=== PATIENT | female | born 1935 | race Caucasian/White ===

== ENCOUNTER 2016-07-25 12:38 | Emergency (ER) | payer MEDICARE, OTHER ==
[2015-09-10 10:50] VITALS: BMI 22.4
[~2016-07-25 12:38] MED LIST: CARAFATE1 G PO; COLACE100 MG PO; ELIQUIS2.5 MG PO; FOLIC ACID1 MG PO; METHOTREXATE2.5 MG PO; OXYCODONE HCL5 MG PO; PREDNISONE2.5 MG PO; SYNTHROID88 MCG PO; VOLTAREN75 MG PO; ZESTORETIC 10/11 TAB PO; ZOFRAN4 MG PO
== END 2016-07-25 15:01 | disposition home or self-care (01) ==
LOC: D.ER 12:38
DX: S50.312A Abrasion of left elbow, initial encounter (principal); S50.311A Abrasion of right elbow, initial encounter; W18.30XA Fall on same level, unspecified, initial encounter; S00.81XA Abrasion of other part of head, initial encounter; I10 Essential (primary) hypertension

== ENCOUNTER 2019-04-16 15:08 | Inpatient (IN) | payer MEDICARE, OTHER ==
[~2019-04-16] VITALS: Ht 162.6 cm; Wt 51.3 kg
--- NOTE | 2019-04-16 15:30 | NUR ---
URINE COLLECTED AND SENT TO LAB
[2019-04-16 15:56] LABS: BASOPHILS 0.2 % (0-2); EOSINOPHILS 1.5 % (0-7); HEMATOCRIT 34.1 % (36.0-48.0); HEMOGLOBIN 11.3 g/dL (12-16); IMMATURE GRANULOCYTES 0.2 % (0-5); LYMPHOCYTES 29.7 % (15-50); MCH 30.9 pg (26.0-34.0); MCHC 33.1 g/dL (31.0-37.0); MCV 93.2 fL (80.0-100.0); MEAN PLATELET VOLUME 10.7 fL (7.4-10.4); MONOCYTES 16.6 % (2-11); NEUTROPHILS 51.8 % (40-80); PLATELET COUNT 378 10x3/uL (130-400); RBC 3.66 10x6/uL (4.00-5.40); RDW 14.4 % (11.5-14.5); WBC 9.3 10x3/uL (4.8-10.8)
[2019-04-16 16:03] LABS: BILIRUBIN NEGATIVE (NEGATIVE); GLUCOSE NEGATIVE (NEGATIVE); KETONE NEGATIVE (NEGATIVE); NITRITE NEGATIVE (NEGATIVE); SPECIFIC GRAVITY 1.015 (1.005-1.020); UROBILINOGEN NORMAL (NORMAL)
[2019-04-16 16:05] LABS: WHITE CELLS - URINE 0-5 /hpf (NEGATIVE)
[2019-04-16 16:07] LABS: RED CELLS - URINE OCC /hpf (0-5)
[2019-04-16 16:08] LABS: BACTERIA MODERATE /hpf (NEGATIVE)
[2019-04-16 16:11] LABS: CALC OSMOLALITY 294 mosm/kg (275-300); CALCIUM 9.5 mg/dL (8.5-10.1); CARBON DIOXIDE 20.1 mmol/L (21.0-32.0); CHLORIDE - SERUM 103 mmol/L (98-107); CREATININE - SERUM 1.6 mg/dL (0.6-1.3); GLUCOSE 112 mg/dL (74-106); POTASSIUM - SERUM 4.7 mmol/L (3.5-5.1); SODIUM 135 mmol/L (136-145); UREA NITROGEN 81 mg/dL (7-18); eGFR NON AFRICAN AMERICAN 33 mL/min (90-120)
[2019-04-16 16:20] LABS: ALBUMIN 3.2 g/dL (3.4-5.0); ALKALINE PHOSPHATASE 63 U/L (30-120); ALT (SGPT) 22 U/L (10-68); AMYLASE - SERUM 55 U/L (25-115); BILIRUBIN - TOTAL 0.41 mg/dL (0.2-1.3); LIPASE 96 U/L (73-393); PROTEIN - SERUM 7.6 g/dL (6.4-8.2)
[2019-04-16 16:25] LABS: TROPONIN-I < 0.017 ng/mL (0.000-0.060)
--- NOTE | 2019-04-16 19:40 | NUR ---
[facility] PT AAO X 3, RESP EVEN AND UNLABORED. NO DISTRESS NOTED. NO C/O PAIN OR DISCOMFORT NOTED AT THIS TIME. PT MOVED TO BED WITHOUT DIFFICULTY, 20 G TO RIGHT FOREARM, NO REDNES OR SWELLING NOTED TO SITE, NS AT 100CC/HR INFUSING VIA IV PUMP. NO NAUSEA/VOMITING NOTED AT THIS TIME.
[2019-04-16 20:00] VITALS: BP 126/47
[2019-04-16 22:17] VITALS: BMI 19.4
[2019-04-17] VITALS: BP 102/45
[2019-04-17 04:00] VITALS: BP 110/45
[2019-04-17 07:07] LABS: BASOPHILS 0.4 % (0-2); EOSINOPHILS 2.4 % (0-7); HEMATOCRIT 28.3 % (36.0-48.0); LYMPHOCYTES 33.9 % (15-50); MCH 29.6 pg (26.0-34.0); MCHC 31.4 g/dL (31.0-37.0); MEAN PLATELET VOLUME 11.2 fL (7.4-10.4); MONOCYTES 17.2 % (2-11); NEUTROPHILS 46.1 % (40-80); RBC 3.01 10x6/uL (4.00-5.40); RDW 14.5 % (11.5-14.5)
[2019-04-17 07:10] LABS: HEMOGLOBIN 8.9 g/dL (12-16); PLATELET COUNT 287 10x3/uL (130-400); WBC 5.5 10x3/uL (4.8-10.8)
[2019-04-17 07:41] LABS: ALBUMIN 2.4 g/dL (3.4-5.0); ANION GAP 14.6 mmol/L (8-16); BILIRUBIN - TOTAL 0.38 mg/dL (0.2-1.3); CALCIUM 8.1 mg/dL (8.5-10.1); CARBON DIOXIDE 19.2 mmol/L (21.0-32.0); CREATININE - SERUM 1.2 mg/dL (0.6-1.3)
[2019-04-17 07:43] LABS: POTASSIUM - SERUM 3.8 mmol/L (3.5-5.1)
[2019-04-17 08:04] VITALS: BP 112/56
--- NOTE | 2019-04-17 09:29 | NUR ---
DENIES ANY PAIN THIS MORNING, STATE "HAVING SOME DIARRHEA".
[2019-04-17 13:01] VITALS: Ht 162.6 cm; Wt 51.3 kg
[2019-04-17 13:16] VITALS: BP 147/61
[2019-04-17 15:59] VITALS: BP 114/61
--- NOTE | 2019-04-17 20:19 | NUR ---
PT. IN BED, AAO X 3, RESP EVEN AND UNLABORED. NO DISTRESS NOTED. NO C/O PAIN OR DISCOMFORT NOTED. IV INFUSING TO RIGHT FOREARM, NO REDNESS OR SWELLING NOTED. NS @ 100 CC/HR. NO CONCERNS OR WANTS NOTED AT THIS TIME.
[2019-04-17 21:15] VITALS: BP 115/64
[2019-04-18 01:44] VITALS: BP 117/67
--- NOTE | 2019-04-18 05:33 | NUR ---
I have reviewed this patient and I concur with the Shift Assessment completed by the Licensed Practical Nurse today this shift.
[2019-04-18 06:48] VITALS: BP 99/46
--- NOTE | 2019-04-18 07:44 | NUR ---
PT LYING IN BED, VOICED NO N/V SINCE 2 DAYS AGO. PT HAS HAD DIARRHEA. NO S/SX OF DISTRESS, BED IN LOWEST POSITION, CL IN REACH CONTINUE WITH PLAN OF CARE
[2019-04-18 09:01] VITALS: BP 117/50
--- NOTE | 2019-04-18 11:47 | NUR ---
I have reviewed this patient and I concur with the Shift Assessment completed by the Licensed Practical Nurse today this shift.
--- NOTE | 2019-04-18 12:24 | NUR ---
PT LYING IN BED, NO NEEDS VOICED, STATED STILL HAVING DIARRHEA BUT DOES NOT NEED ANYTHING, BED IN LOWEST POSITION, CL IN REACH CONTINUE WITH PLAN OF CARE
[2019-04-18 13:12] VITALS: BP 124/55
[2019-04-18 16:44] VITALS: BP 115/54
[2019-04-18 20:00] VITALS: BP 127/60
[2019-04-19] VITALS: BP 125/55
[2019-04-19 06:04] LABS: BASOPHILS 0.3 % (0-2); EOSINOPHILS 3.8 % (0-7); HEMATOCRIT 24.9 % (36.0-48.0); HEMOGLOBIN 8.2 g/dL (12-16); IMMATURE GRANULOCYTES 0.5 % (0-5); LYMPHOCYTES 29.5 % (15-50); MCH 30.4 pg (26.0-34.0); MCHC 32.9 g/dL (31.0-37.0); MCV 92.2 fL (80.0-100.0); MEAN PLATELET VOLUME 10.1 fL (7.4-10.4); MONOCYTES 11.1 % (2-11); NEUTROPHILS 54.8 % (40-80); PLATELET COUNT 236 10x3/uL (130-400); RDW 13.7 % (11.5-14.5); WBC 6.5 10x3/uL (4.8-10.8)
[2019-04-19 08:11] VITALS: BP 120/56
[2019-04-19 08:41] VITALS: BP 119/59
--- NOTE | 2019-04-19 08:58 | NUR ---
SHE STARTING BLOODY DIARRHEA LAST NIGHT. NO NEW ISSUES.
[2019-04-19 09:03] LABS: ANION GAP 13.4 mmol/L (8-16); CALCIUM 7.7 mg/dL (8.5-10.1); CREATININE - SERUM 0.9 mg/dL (0.6-1.3); POTASSIUM - SERUM 3.4 mmol/L (3.5-5.1)
--- NOTE | 2019-04-19 12:58 | NUR ---
TUBING CHANGED ON THE PRIMARY TUBING AND SECONDARY TUBING.
[2019-04-19 13:41] VITALS: BP 149/62
--- NOTE | 2019-04-19 14:28 | MORECARE ---
CASE MANAGEMENT DISCHARGE SUMMARY PATIENT: CABRERA LOVELL UNIT: [id number] ADM DATE: 04/16/19 AGE: 84 : 37 SEX: F ROOM/BED: D.2232 AUTHOR: PALMA,DOC PHYSICIAN: REFERRING PHYSICIAN: BENITO GUARDADO MD DATE OF SERVICE: 04/19/19 Discharge Plan Patient Name: CABRERA LOVELL Facility: [facility]:[place] : 1935 Planned Disposition: Home Anticipated Discharge Date: 04/19/19 Discharge Date: Expected LOS: 3 Initial Reviewer: [email or web address] Initial Review Date: 04/19/2019 Generated: 04/19/19 3:28 pm Comments DCP- Discharge Planning Updated by [email or web address]: Liz Mills on 04/19/19 1:[address] Patient Name: CABRERA LOVELL Admission Status: ER Accout number: [id number] Admission Date: 04-16-2019 : 1935 Admission Diagnosis: Attending: BENITO GUARDADO Current LOS: 3 Anticipated DC Date: 04-19-2019 Planned Disposition: Home Primary Insurance: MEDICARE A & B Discharge Planning Comments: CM met with patient to complete initial dc planning assessment. CM educated patient on the CM role and verbal consent given by patient to complete assessment. Patient lives at home with 48 year old daughter (that she care for) and 91 year old "lady friend". At discharge patient plans to return and feels this is a safe discharge. CM discussed availability of home health, rehab services, and medical equipment. Patient denied known discharge needs at this time. States she will drive herself home on discharge. CM will continue to follow and will assist as needed with dc plans/needs. Therapist Physical: Liz Mills DCPIA - Discharge Planning Initial Assessment Updated by [email or web address]: Liz Mills on 04/19/19 2:22 pm * Is the patient Alert and Oriented? Yes * How many steps to enter\\exit or inside your home? 02/20 * PCP Dr. Guardado * Pharmacy [place] * Preadmission Environment Home with Family * ADLs Independent * Equipment None * List name and contact numbers for known caregivers / representatives who currently or will assist patient after discharge: April [facility] - [phone] * Verbal permission to speak to the caregivers and representatives has been obtained from the patient. Yes * Community resources currently utilized None * Additional services required to return to the preadmission environment? No * Can the patient safely return to the preadmission environment? Yes * Has this patient been hospitalized within the prior 30 days at any hospital? No Coverage Notice Reviewer: [id number] Mekhi Mills Notice Issued Date-Time: 04/19/2019 14:19 Notice Type: IM Discharge Notice Notice Delivered To: Patient Relationship to Patient: Self Gerontology Aide Name: Delivery Method: HAND - Hand Delivered Beverly Days: Prior Verbal Notification: Recipient Understood Notice: Yes Recipient Signature: Yes Med Rec Note Co-signed by Attending: Coverage Notice Comment: IMM explained, signed, given, copy placed in MR Patient Name: CABRERA LOVELL Page [phone] at 1428 All edits/amendments must be made on the electronic document DICTATION DATE: 04/19/191427 LEAD DATA ARCHITECT: LUCÍA 04/19/19 142 RPT#: [id number] DC DATE: STATUS: ADM IN [facility] [address] [place] [address] END OF REPORT
--- NOTE | 2019-04-22 09:37 | MORECARE ---
CASE MANAGEMENT DISCHARGE SUMMARY PATIENT: CABRERA LOVELL UNIT: [id number] ADM DATE: 04/16/19 AGE: 84 : 37 SEX: F ROOM/BED: D.2232 AUTHOR: PALMA,DOC PHYSICIAN: REFERRING PHYSICIAN: BENITO GUARDADO MD DATE OF SERVICE: 04/22/19 Discharge Plan Patient Name: CABRERA LOVELL Facility: [facility]:[place] : 1935 Planned Disposition: Home Anticipated Discharge Date: 04/19/19 Discharge Date: 04/19/2019 Expected LOS: 3 Initial Reviewer: [email or web address] Initial Review Date: 04/19/2019 Generated: 04/22/19 10:36 am Comments DCP- Discharge Planning Updated by [email or web address]: Liz Mills on 04/19/19 1:[address] Patient Name: CABRERA LOVELL Admission Status: ER Accout number: [id number] Admission Date: 04-16-2019 : 1935 Admission Diagnosis: Attending: BENITO GUARDADO Current LOS: 3 Anticipated DC Date: 04-19-2019 Planned Disposition: Home Primary Insurance: MEDICARE A & B Discharge Planning Comments: CM met with patient to complete initial dc planning assessment. CM educated patient on the CM role and verbal consent given by patient to complete assessment. Patient lives at home with 48 year old daughter (that she care for) and 91 year old "lady friend". At discharge patient plans to return and feels this is a safe discharge. CM discussed availability of home health, rehab services, and medical equipment. Patient denied known discharge needs at this time. States she will drive herself home on discharge. CM will continue to follow and will assist as needed with dc plans/needs. Furniture Duster: Liz Mills DCPIA - Discharge Planning Initial Assessment Updated by [id number]: Liz Mills on 04/19/19 2:22 pm * Is the patient Alert and Oriented? Yes * How many steps to enter\\exit or inside your home? 02/20 * PCP Dr. Guardado * Pharmacy [place] * Preadmission Environment Home with Family * ADLs Independent * Equipment None * List name and contact numbers for known caregivers / representatives who currently or will assist patient after discharge: April [facility] - [phone] * Verbal permission to speak to the caregivers and representatives has been obtained from the patient. Yes * Community resources currently utilized None * Additional services required to return to the preadmission environment? No * Can the patient safely return to the preadmission environment? Yes * Has this patient been hospitalized within the prior 30 days at any hospital? No Coverage Notice Reviewer: [email or web address] Mekhi Mills Notice Issued Date-Time: 04/19/2019 14:19 Notice Type: IM Discharge Notice Notice Delivered To: Patient Relationship to Patient: Self Game Technician Name: Delivery Method: HAND - Hand Delivered Beverly Days: Prior Verbal Notification: Recipient Understood Notice: Yes Recipient Signature: Yes Med Rec Note Co-signed by Attending: Coverage Notice Comment: IMM explained, signed, given, copy placed in MR Last DP export: 04/19/19 1:28 p Patient Name: CABRERA LOVELL Page [phone] at 0937 All edits/amendments must be made on the electronic document DICTATION DATE: 04/22/19935 SALES SERVICE COORDINATOR: LUCÍA 04/22/19935 RPT#: [id number] DC DATE:04/19/19 STATUS: DIS IN [facility] [address] [place] [address] END OF REPORT
== END 2019-04-19 20:17 | disposition home or self-care (01) | DRG 683 ==
LOC: D.ER 15:08 → D.MS 17:33
PROVIDERS: Family Medicine; ADMIT Family Medicine; ATTEND Family Medicine
DX: N17.9 Acute kidney failure, unspecified (principal); N39.0 Urinary tract infection, site not specified; K52.9 Noninfective gastroenteritis and colitis, unspecified; E86.9 Volume depletion, unspecified; E86.0 Dehydration; I10 Essential (primary) hypertension; M19.90 Unspecified osteoarthritis, unspecified site; R79.89 Other specified abnormal findings of blood chemistry

== ENCOUNTER 2019-04-20 23:25 | Inpatient (IN) | payer MEDICARE, OTHER ==
[~2019-04-20] VITALS: Ht 162.6 cm; Wt 52.6 kg
[2019-04-20 23:50] LABS: BASOPHILS 0.3 % (0-2); EOSINOPHILS 0.8 % (0-7); IMMATURE GRANULOCYTES 1.1 % (0-5); LYMPHOCYTES 8.8 % (15-50); MCH 29.9 pg (26.0-34.0); MCHC 32.8 g/dL (31.0-37.0); MEAN PLATELET VOLUME 10.7 fL (7.4-10.4); MONOCYTES 6.7 % (2-11); NEUTROPHILS 82.3 % (40-80); RDW 13.6 % (11.5-14.5)
[2019-04-20 23:51] LABS: HEMATOCRIT 33.5 % (36.0-48.0); PLATELET COUNT 384 10x3/uL (130-400); RBC 3.68 10x6/uL (4.00-5.40); WBC 12.9 10x3/uL (4.8-10.8)
[2019-04-20 23:59] LABS: ANION GAP 18.3 mmol/L (8-16); CALCIUM 9.1 mg/dL (8.5-10.1); CARBON DIOXIDE 19.1 mmol/L (21.0-32.0); POTASSIUM - SERUM 3.4 mmol/L (3.5-5.1)
[2019-04-21 00:01] LABS: CREATININE - SERUM 1.2 mg/dL (0.6-1.3)
[2019-04-21 00:05] LABS: ALBUMIN 3.2 g/dL (3.4-5.0); BILIRUBIN - TOTAL 0.35 mg/dL (0.2-1.3); MAGNESIUM - SERUM 1.7 mg/dL (1.8-2.4); PROTEIN - SERUM 7.2 g/dL (6.4-8.2)
[2019-04-21 00:56] LABS: BILIRUBIN NEGATIVE (NEGATIVE); GLUCOSE NEGATIVE (NEGATIVE); KETONE MODERATE mg/dL (NEGATIVE); NITRITE NEGATIVE (NEGATIVE); SPECIFIC GRAVITY 1.015 (1.005-1.020); UROBILINOGEN NORMAL (NORMAL)
[2019-04-21 01:04] LABS: CKMB 4.1 U/L (0.0-3.6); CREATINE KINASE 216 UL (21-215)
[2019-04-21 01:05] LABS: TROPONIN-I < 0.017 ng/mL (0.000-0.060)
--- NOTE | 2019-04-21 02:30 | NUR ---
PATIENT ARRIVED ON FLOOR VIA BED WITH HOSPITAL STAFF AND FRIEND. NO S/S OF ACUTE DISTRESS. NO C/O AT THIS TIME. PATIENT WALKED FROM ER BED TO OUR BED. PATIENT HAS RIGHT AC NORMAL SALINE @ 100 ML/HR. IV IS PATENT WITHOUT REDNESS, SWELLING, OR TENDERNESS. CALL LIGHT IN PLACE. WILL CONTINUE TO MONITOR.
[2019-04-21 02:59] VITALS: BP 147/48; BMI 19.9
[2019-04-21 04:00] VITALS: BP 147/48
[2019-04-21 07:06] LABS: BASOPHILS 0.2 % (0-2); EOSINOPHILS 1.5 % (0-7); IMMATURE GRANULOCYTES 0.9 % (0-5); LYMPHOCYTES 22.7 % (15-50); MCH 29.7 pg (26.0-34.0); MCHC 32.8 g/dL (31.0-37.0); MCV 90.4 fL (80.0-100.0); MEAN PLATELET VOLUME 10.2 fL (7.4-10.4); MONOCYTES 7.4 % (2-11); NEUTROPHILS 67.3 % (40-80); RDW 13.9 % (11.5-14.5)
[2019-04-21 07:16] LABS: HEMATOCRIT 26.5 % (36.0-48.0); HEMOGLOBIN 8.7 g/dL (12-16); PLATELET COUNT 283 10x3/uL (130-400); RBC 2.93 10x6/uL (4.00-5.40); WBC 6.5 10x3/uL (4.8-10.8)
[2019-04-21 07:35] LABS: ALBUMIN 2.5 g/dL (3.4-5.0); BILIRUBIN - TOTAL 0.26 mg/dL (0.2-1.3); CALCIUM 7.7 mg/dL (8.5-10.1); CARBON DIOXIDE 17.9 mmol/L (21.0-32.0); CREATININE - SERUM 0.9 mg/dL (0.6-1.3); PROTEIN - SERUM 5.7 g/dL (6.4-8.2)
[2019-04-21 07:41] LABS: ANION GAP 17.2 mmol/L (8-16); POTASSIUM - SERUM 3.1 mmol/L (3.5-5.1)
--- NOTE | 2019-04-21 07:59 | NUR ---
PT LAYING SUPINE, RR EVEN AND UNLABORED. DENIES NEEDS OR PAIN AT THIS TIME. STOOL SAMPLE COLLECTED AND SENT TO LAB. CALL LIGHT WITHIN REACH. BED IN LOWEST POSITION. CALL LIGHT WITHIN REACH. WILL CONTINUE TO MONITOR.
[2019-04-21 08:45] VITALS: BP 118/46
[2019-04-21 12:29] VITALS: BP 126/53
[2019-04-21 16:30] VITALS: BP 125/51
--- NOTE | 2019-04-21 17:12 | NUR ---
I have reviewed this patient and I concur with the Shift Assessment completed by the Licensed Practical Nurse today this shift.
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
--- NOTE | 2019-04-21 18:35 | NUR ---
IV TO RIGHT AC INFILTRATED. D/C WITH CATHETER TIP INTACT. 22 G RESITED TO LEFT FOREARM INFUSING NS @100
[2019-04-21 20:00] VITALS: BP 147/48
[2019-04-22] VITALS: BP 139/79
[2019-04-22 04:00] VITALS: BP 135/65
[2019-04-22 06:19] LABS: BASOPHILS 0.3 % (0-2); EOSINOPHILS 4.8 % (0-7); HEMATOCRIT 25.9 % (36.0-48.0); HEMOGLOBIN 8.4 g/dL (12-16); IMMATURE GRANULOCYTES 0.9 % (0-5); LYMPHOCYTES 36.8 % (15-50); MCH 29.5 pg (26.0-34.0); MCHC 32.4 g/dL (31.0-37.0); MCV 90.9 fL (80.0-100.0); MEAN PLATELET VOLUME 10.7 fL (7.4-10.4); MONOCYTES 11.7 % (2-11); NEUTROPHILS 45.5 % (40-80); PLATELET COUNT 277 10x3/uL (130-400); RBC 2.85 10x6/uL (4.00-5.40); RDW 14.2 % (11.5-14.5); WBC 7.5 10x3/uL (4.8-10.8)
[2019-04-22 06:46] LABS: ANION GAP 14.7 mmol/L (8-16); CALCIUM 7.7 mg/dL (8.5-10.1); CARBON DIOXIDE 18.5 mmol/L (21.0-32.0); CREATININE - SERUM 0.8 mg/dL (0.6-1.3); MAGNESIUM - SERUM 1.5 mg/dL (1.8-2.4); PHOSPHOROUS 2.1 mg/dL (2.5-4.9); POTASSIUM - SERUM 3.2 mmol/L (3.5-5.1)
[2019-04-22 08:39] VITALS: BP 130/60
[2019-04-22 12:53] VITALS: BP 138/64
[2019-04-22 14:01] VITALS: Ht 162.6 cm; Wt 52.6 kg
[2019-04-22 16:01] VITALS: BP 139/62
--- NOTE | 2019-04-22 16:22 | NUR ---
I have reviewed this patient and I concur with the Shift Assessment completed by the Licensed Practical Nurse today this shift.
[2019-04-22 20:00] VITALS: BP 148/61
[2019-04-23] VITALS: BP 150/64
[2019-04-23 04:00] VITALS: BP 168/82
--- NOTE | 2019-04-23 07:00 | NUR ---
ALERT AND ORIENTED. NO C/O PAIN. NO S/S OF ACUTE DISTRESS NOTED. IV TO LEFT FOREARM, NS INFUSING 125ML/HR. SITE PATENT WITHOUT REDNESS OR SWELLING. ON TELEMETRY 69 SR. DENIES ANY NEEDS AT THIS TIME. CALL LIGHT IN REACH. WILL CONTINUE TO MONITOR.
[2019-04-23 08:41] VITALS: BP 163/71
[2019-04-23 13:03] VITALS: BP 161/77
[2019-04-23 18:02] VITALS: BP 156/66
--- NOTE | 2019-04-23 18:56 | NUR ---
ALERT AND ORIENTED. NO C/O PAIN. NO S/S OF ACUTE DISTRESS NOTED. DENIES ANY NEEDS AT THIS TIME. CALL LIGHT IN REACH. WILL CONTINUE TO MONITOR.
[2019-04-24] VITALS: BP 156/71
--- NOTE | 2019-04-24 07:00 | NUR ---
ALERT AND ORIENTED, RESTING IN BED. NO C/O PAIN. NO S/S OF ACUTE DISTRESS NOTED. IV TO LEFT FOREARM, NS INFUSING @ 125ML/HR. SITE PATENT WITHOUT REDNESS OR SWELLING. ON TELEMETRY SR 82. DENIES ANY NEEDS AT THIS TIME. CALL LIGHT IN REACH. WILL CONTINUE TO MONITOR.
[2019-04-24 07:50] LABS: BASOPHILS 0.3 % (0-2); EOSINOPHILS 0.2 % (0-7); HEMATOCRIT 27.7 % (36.0-48.0); IMMATURE GRANULOCYTES 1.6 % (0-5); LYMPHOCYTES 15.9 % (15-50); MCH 29.4 pg (26.0-34.0); MCHC 32.5 g/dL (31.0-37.0); MCV 90.5 fL (80.0-100.0); MEAN PLATELET VOLUME 10.5 fL (7.4-10.4); MONOCYTES 5.8 % (2-11); NEUTROPHILS 76.2 % (40-80); PLATELET COUNT 291 10x3/uL (130-400); RBC 3.06 10x6/uL (4.00-5.40); RDW 14.4 % (11.5-14.5)
[2019-04-24 08:06] LABS: WBC 9.9 10x3/uL (4.8-10.8)
[2019-04-24 08:16] LABS: CALC OSMOLALITY 278 mosm/kg (275-300); CALCIUM 7.8 mg/dL (8.5-10.1); CHLORIDE - SERUM 110 mmol/L (98-107); CREATININE - SERUM 0.7 mg/dL (0.6-1.3); GLUCOSE 85 mg/dL (74-106); SODIUM 142 mmol/L (136-145); UREA NITROGEN 5 mg/dL (7-18); eGFR NON AFRICAN AMERICAN 85 mL/min (90-120)
[2019-04-24 09:18] VITALS: BP 160/80
[2019-04-24 13:06] VITALS: BP 163/79
--- NOTE | 2019-04-24 16:25 | NUR ---
I have reviewed this patient and I concur with the Shift Assessment completed by the Licensed Practical Nurse today this shift.
[2019-04-24 16:56] VITALS: BP 153/77
--- NOTE | 2019-04-24 18:24 | NUR ---
ALERT AND ORIENTED. NO C/O PAIN. NO S/S OF ACUTE DISTRESS NOTED. DENIES ANY NEEDS AT THIS TIME. CALL LIGHT IN REACH. WILL CONTINUE TO MONITOR.
[2019-04-24 20:00] VITALS: BP 144/69
--- NOTE | 2019-04-25 01:41 | NUR ---
PT RESTING IN BED. EYES CLOSED. NO SIGNS OF DISTRESS. BREATHING EVEN AND UNLABORED. IV SITE LT FA DRESSING CLEAN DRY AND INTACT. NO SIGNS OF INFECTION OR INFULTRATION. BOWEL SOUNDS ACTIVE. LUNG SOUNDS CLEAR. SKIN CLEAN DRY AND INTACT. NO LOWER LEG SWELLING PRESENT. WILL CONTINUE PLAN OF CARE. CALL LIGHT IN REACH. BED LOWERED AND LOCKED. BED RAILS UP X2.
--- NOTE | 2019-04-25 02:04 | NUR ---
I have reviewed this patient and I concur with the Shift Assessment completed by the Licensed Practical Nurse today this shift.
[2019-04-25 04:00] VITALS: BP 143/78
[2019-04-25 05:19] LABS: BASOPHILS 0.3 % (0-2); EOSINOPHILS 0.4 % (0-7); HEMOGLOBIN 8.6 g/dL (12-16); IMMATURE GRANULOCYTES 1.2 % (0-5); LYMPHOCYTES 16.4 % (15-50); MCH 29.9 pg (26.0-34.0); MCHC 33.1 g/dL (31.0-37.0); MCV 90.3 fL (80.0-100.0); MEAN PLATELET VOLUME 10.4 fL (7.4-10.4); MONOCYTES 6.4 % (2-11); NEUTROPHILS 75.3 % (40-80); PLATELET COUNT 298 10x3/uL (130-400); RBC 2.88 10x6/uL (4.00-5.40); RDW 14.6 % (11.5-14.5); WBC 9.6 10x3/uL (4.8-10.8)
[2019-04-25 05:43] LABS: ANION GAP 14.9 mmol/L (8-16); CALCIUM 7.7 mg/dL (8.5-10.1); CARBON DIOXIDE 20.3 mmol/L (21.0-32.0); CREATININE - SERUM 0.8 mg/dL (0.6-1.3)
[2019-04-25 05:44] LABS: POTASSIUM - SERUM 3.2 mmol/L (3.5-5.1)
[2019-04-25 09:03] VITALS: BP 167/74
[2019-04-25 12:10] VITALS: BP 155/80
--- NOTE | 2019-04-25 13:23 | NUR ---
PT LYING IN BED, NO S/SX OF DISTRESS, PT STATES SHE FEELS A LOT BETTER AND IS READY TO BE DC. NO OTHER NEEDS VOICED, CONTINUE WITH PLAN OF CARE
--- NOTE | 2019-04-25 13:32 | MORECARE ---
CASE MANAGEMENT DISCHARGE SUMMARY PATIENT: CABRERA LOVELL UNIT: [id number] ADM DATE: 04/21/19 AGE: 84 : 37 SEX: F ROOM/BED: D.2234 AUTHOR: JAZ WALDROP PHYSICIAN: REFERRING PHYSICIAN: BENITO GUARDADO MD DATE OF SERVICE: 04/25/19 Discharge Plan Patient Name: CABRERA LOVELL [facility] [facility] 1935 Planned Disposition: Home Anticipated Discharge Date: Discharge Date: Expected LOS: Initial Reviewer: [email or web address] Initial Review Date: 04/25/2019 Generated: 04/25/19 2:32 pm DCPIA - Discharge Planning Initial Assessment Updated by [id number]: Liz Mills on 04/25/19 1:31 pm * Is the patient Alert and Oriented? Yes * How many steps to enter\exit or inside your home? 02/20 * PCP Dr. Guardado * Pharmacy [place] * Preadmission Environment Home with Family * ADLs Independent * Equipment None * List name and contact numbers for known caregivers / representatives who currently or will assist patient after discharge: Kareem [facility] - [email or web address] - [phone] * Verbal permission to speak to the caregivers and representatives has been obtained from the patient. Yes * Community resources currently utilized None * Additional services required to return to the preadmission environment? No * Can the patient safely return to the preadmission environment? Yes * Has this patient been hospitalized within the prior 30 days at any hospital? Yes Patient Name: CABRERA LOVELL Page 12521 at 1332 All edits/amendments must be made on the electronic document DICTATION DATE: 04/25/19 1332 RADIO OPERATOR GROUND: LUCÍA 04/25/19 1332 RPT#: [id number] DC DATE: STATUS: ADM IN [facility] [address] [place] [address] END OF REPORT
--- NOTE | 2019-04-25 13:42 | MORECARE ---
CASE MANAGEMENT DISCHARGE SUMMARY PATIENT: CABRERA LOVELL UNIT: [id number] ADM DATE: 04/21/19 AGE: 84 : 37 SEX: F ROOM/BED: D.2234 AUTHOR: PALMA,DOC PHYSICIAN: REFERRING PHYSICIAN: BENITO GUARDADO MD DATE OF SERVICE: 04/25/19 Discharge Plan Patient Name: CABRERA LOVELL Facility: [facility]:[place] : 1935 Planned Disposition: Home Anticipated Discharge Date: Discharge Date: Expected LOS: Initial Reviewer: [email or web address] Initial Review Date: 04/25/2019 Generated: 04/25/19 2:41 pm Comments DCP- Discharge Planning Updated by [email or web address]: Liz Mills on 04/25/19 12:[address] Patient Name: CABRERA LOVELL Admission Status: ER Accout number: [id number] Admission Date: 04-21-2019 : 1935 Admission Diagnosis: Attending: BENITO GUARDADO Current LOS: 4 Anticipated DC Date: Planned Disposition: Home Primary Insurance: MEDICARE A & B Discharge Planning Comments: CM met with patient to complete initial dc planning assessment. CM educated patient on the CM role and verbal consent given by patient to complete assessment. Patient lives at home with her 48 year old disabled daughter and 91 year old friend. At discharge patient plans to return and feels this is a safe discharge. States she was doing well when she left, but started throwing up after eating her supper that night. I instructed her to make sure she was able to tolerate her diet prior to discharge this time. CM discussed availability of home health, rehab services, and medical equipment. Patient denied known discharge needs at this time. CM will continue to follow and will assist as needed with dc plans/needs. Lithographic Platemaker: Liz Mills DCPIA - Discharge Planning Initial Assessment Updated by [email or web address]: Liz Mills on 04/25/19 1:31 pm * Is the patient Alert and Oriented? Yes * How many steps to enter\exit or inside your home? 02/20 * PCP Dr. Guardado * Pharmacy [place] * Preadmission Environment Home with Family * ADLs Independent * Equipment None * List name and contact numbers for known caregivers / representatives who currently or will assist patient after discharge: Kareem Velazquez - [email or web address] - [phone] * Verbal permission to speak to the caregivers and representatives has been obtained from the patient. Yes * Community resources currently utilized None * Additional services required to return to the preadmission environment? No * Can the patient safely return to the preadmission environment? Yes * Has this patient been hospitalized within the prior 30 days at any hospital? Yes Last DP export: 04/25/19 12:32 pm Patient Name: CABRERA LOVELL Page [phone] at 1342 All edits/amendments must be made on the electronic document DICTATION DATE: 04/25/19 1342 CLEAN ROOM ASSEMBLER: LUCÍA 04/25/19 1342 RPT#: [id number] DC DATE: STATUS: ADM IN [facility] [address] [place] [address] END OF REPORT
[2019-04-25] MEDS ORDERED: LEVOFLOXACIN500 MG PO (13:46)
[2019-04-25] MEDS ORDERED: PREDNISONE5 MG PO (13:46)
[2019-04-25] MEDS ORDERED: FLAGYL500 MG PO (13:47)
--- NOTE | 2019-04-25 14:22 | MORECARE ---
CASE MANAGEMENT DISCHARGE SUMMARY PATIENT: CABRERA LOVELL UNIT: [id number] ADM DATE: 04/21/19 AGE: 84 : 37 SEX: F ROOM/BED: D.2234 AUTHOR: PALMADOC PHYSICIAN: REFERRING PHYSICIAN: BENITO GUARDADO MD DATE OF SERVICE: 04/25/19 Discharge Plan Patient Name: CABRERA LOVELL Facility: [facility]:[place] : 1935 Planned Disposition: Home Anticipated Discharge Date: Discharge Date: Expected LOS: Initial Reviewer: [email or web address] Initial Review Date: 04/25/2019 Generated: 04/25/19 3:21 pm Comments DCP- Discharge Planning Updated by [email or web address]: Liz Mills on 04/25/19 1:[address] Patient Name: CABRERA LOVELL Encounter No: [id number] : 1935 Primary Insurance: MEDICARE A & B Anticipated DC Date: Planned Disposition: Home External Planned Provider: : DCP follow-up note: Patient in agreement with discharge plan. No changes to plan. Case management will follow and assist as needed. Liz Mills DCP- Discharge Planning Updated by [email or web address]: Liz Mills on 04/25/19 12:[address] Patient Name: CABRERA LOVELL Admission Status: ER Accout number: [id number] Admission Date: 04-21-2019 : 1935 Admission Diagnosis: Attending: BENITO GUARDADO Current LOS: 4 Anticipated DC Date: Planned Disposition: Home Primary Insurance: MEDICARE A & B Discharge Planning Comments: CM met with patient to complete initial dc planning assessment. CM educated patient on the CM role and verbal consent given by patient to complete assessment. Patient lives at home with her 48 year old disabled daughter and 91 year old friend. At discharge patient plans to return and feels this is a safe discharge. States she was doing well when she left, but started throwing up after eating her supper that night. I instructed her to make sure she was able to tolerate her diet prior to discharge this time. CM discussed availability of home health, rehab services, and medical equipment. Patient denied known discharge needs at this time. CM will continue to follow and will assist as needed with dc plans/needs. Round Cutter Operator: Liz Mills DCPIA - Discharge Planning Initial Assessment Updated by [email or web address]: Liz Mills on 04/25/19 1:31 pm * Is the patient Alert and Oriented? Yes * How many steps to enter\exit or inside your home? 02/20 * PCP Dr. Guardado * Pharmacy [place] * Preadmission Environment Home with Family * ADLs Independent * Equipment None * List name and contact numbers for known caregivers / representatives who currently or will assist patient after discharge: Kareem [facility] [email or web address] - [phone] * Verbal permission to speak to the caregivers and representatives has been obtained from the patient. Yes * Community resources currently utilized None * Additional services required to return to the preadmission environment? No * Can the patient safely return to the preadmission environment? Yes * Has this patient been hospitalized within the prior 30 days at any hospital? Yes Coverage Notice Reviewer: [email or web address] - Liz Mills Notice Issued Date-Time: 04/25/2019 14:15 Notice Type: IM Discharge Notice Notice Delivered To: Patient Relationship to Patient: Self Security Sales Manager Name: Delivery Method: HAND - Hand Delivered Beverly Days: Prior Verbal Notification: Recipient Understood Notice: Yes Recipient Signature: Yes Med Rec Note Co-signed by Attending: Coverage Notice Comment: IMM explained, signed, given, copy placed in MR Last DP export: 04/25/19 12:42 pm Patient Name: CABRERA LOVELL Page [phone] at 1422 All edits/amendments must be made on the electronic document DICTATION DATE: 04/25/19 142 BEFORE SCHOOL: LUCÍA 04/25/19 142 RPT#: [id number] DC DATE: STATUS: ADM IN [facility] [address] [place] [address] END OF REPORT
--- NOTE | 2019-04-25 16:29 | NUR ---
PT DC HOME. WENT OVER DC PAPERWORK AND FOLLOW UP APPOINTMENTS WITH PT. ALL QUESTIONS ANSWERED. IV REMOVED WITH CATHETER INTACT
--- NOTE | 2019-04-26 06:54 | MORECARE ---
CASE MANAGEMENT DISCHARGE SUMMARY PATIENT: CABRERA LOVELL UNIT: [id number] ADM DATE: 04/21/19 AGE: 84 : 37 SEX: F ROOM/BED: D.2234 AUTHOR: PALMA,DOC PHYSICIAN: REFERRING PHYSICIAN: BENITO GUARDADO MD DATE OF SERVICE: 04/26/19 Discharge Plan Patient Name: CABRERA LOVELL Facility: [facility]:[place] : 1935 Planned Disposition: Home Anticipated Discharge Date: Discharge Date: 04/25/2019 Expected LOS: 0 Initial Reviewer: [email or web address] Initial Review Date: 04/25/2019 Generated: 04/26/19 7:54 am Comments DCP- Discharge Planning Updated by [email or web address]: Lizwinifred Mills on 04/25/19 1:[address] Patient Name: CABRERA LOVELL Encounter No: [id number] : 1935 Primary Insurance: MEDICARE A & B Anticipated DC Date: Planned Disposition: Home External Planned Provider: : DCP follow-up note: Patient in agreement with discharge plan. No changes to plan. Case management will follow and assist as needed. Liz Lina DCP- Discharge Planning Updated by [email or web address]: Liz Lina on 04/25/19 12:[address] Patient Name: CABRERA LOVELL Admission Status: ER Accout number: [id number] Admission Date: 04-21-2019 : 1935 Admission Diagnosis: Attending: BENITO GUARDADO Current LOS: 4 Anticipated DC Date: Planned Disposition: Home Primary Insurance: MEDICARE A & B Discharge Planning Comments: CM met with patient to complete initial dc planning assessment. CM educated patient on the CM role and verbal consent given by patient to complete assessment. Patient lives at home with her 48 year old disabled daughter and 91 year old friend. At discharge patient plans to return and feels this is a safe discharge. States she was doing well when she left, but started throwing up after eating her supper that night. I instructed her to make sure she was able to tolerate her diet prior to discharge this time. CM discussed availability of home health, rehab services, and medical equipment. Patient denied known discharge needs at this time. CM will continue to follow and will assist as needed with dc plans/needs. Patient Services Manager: Liz Mills DCPIA - Discharge Planning Initial Assessment Updated by [email or web address]: Liz Mills on 04/25/19 1:31 pm * Is the patient Alert and Oriented? Yes * How many steps to enter\exit or inside your home? 02/20 * PCP Dr. Guardado * Pharmacy [place] * Preadmission Environment Home with Family * ADLs Independent * Equipment None * List name and contact numbers for known caregivers / representatives who currently or will assist patient after discharge: Kareem [facility] [email or web address] - [phone] * Verbal permission to speak to the caregivers and representatives has been obtained from the patient. Yes * Community resources currently utilized None * Additional services required to return to the preadmission environment? No * Can the patient safely return to the preadmission environment? Yes * Has this patient been hospitalized within the prior 30 days at any hospital? Yes Coverage Notice Reviewer: [email or web address] - Liz Mills Notice Issued Date-Time: 04/25/2019 14:15 Notice Type: IM Discharge Notice Notice Delivered To: Patient Relationship to Patient: Self Ruby On Rails Engineer Name: Delivery Method: HAND - Hand Delivered Beverly Days: Prior Verbal Notification: Recipient Understood Notice: Yes Recipient Signature: Yes Med Rec Note Co-signed by Attending: Coverage Notice Comment: IMM explained, signed, given, copy placed in MR Last DP export: 04/25/19 1:22 pm Patient Name: CABRERA LOVELL Page [phone] at 0654 All edits/amendments must be made on the electronic document DICTATION DATE: 04/26/19653 ONLINE ADVERTISING DIRECTOR: LUCÍA 04/26/19653 RPT#: [id number] DC DATE:04/25/19 STATUS: DIS IN [facility] [address] [place] [address] END OF REPORT
[2019-04-26 10:45] LABS: OVA + PARASITE EXAM Final report (())
== END 2019-04-25 16:31 | disposition home or self-care (01) | DRG 690 ==
LOC: D.ER 23:25 → D.MS 04-21 02:05
PROVIDERS: Family Medicine; ADMIT Family Medicine; ATTEND Family Medicine
DX: N39.0 Urinary tract infection, site not specified (principal); K52.9 Noninfective gastroenteritis and colitis, unspecified; I10 Essential (primary) hypertension; E03.9 Hypothyroidism, unspecified; K59.09 Other constipation; D64.9 Anemia, unspecified; M35.3 Polymyalgia rheumatica; R11.2 Nausea with vomiting, unspecified; M06.9 Rheumatoid arthritis, unspecified

== ENCOUNTER 2019-06-12 19:16 | Inpatient (IN) | payer MEDICARE, OTHER ==
[~2019-06-12] VITALS: Ht 162.6 cm; Wt 45.4 kg
[~2019-06-12 19:16] MED LIST changes: +FLAGYL500 MG PO; +LEVOFLOXACIN500 MG PO; +PREDNISONE5 MG PO
[2019-06-12 19:45] VITALS: BP 139/56
[2019-06-12 20:02] LABS: BASOPHILS 0.2 % (0-2); EOSINOPHILS 0.5 % (0-7); HEMATOCRIT 39.3 % (36.0-48.0); HEMOGLOBIN 12.2 g/dL (12-16); IMMATURE GRANULOCYTES 0.4 % (0-5); LYMPHOCYTES 7.1 % (15-50); MCH 29.8 pg (26.0-34.0); MCV 96.1 fL (80.0-100.0); MEAN PLATELET VOLUME 10.7 fL (7.4-10.4); MONOCYTES 6.3 % (2-11); NEUTROPHILS 85.5 % (40-80); PLATELET COUNT 321 10x3/uL (130-400); RBC 4.09 10x6/uL (4.00-5.40); RDW 13.7 % (11.5-14.5); WBC 17.8 10x3/uL (4.8-10.8)
[2019-06-12 20:11] LABS: CALC OSMOLALITY 285 mosm/kg (275-300); CALCIUM 9.4 mg/dL (8.5-10.1); CARBON DIOXIDE 24.8 mmol/L (21.0-32.0); CHLORIDE - SERUM 102 mmol/L (98-107); CREATININE - SERUM 1.3 mg/dL (0.6-1.3); GLUCOSE 133 mg/dL (74-106); POTASSIUM - SERUM 4.2 mmol/L (3.5-5.1); SODIUM 138 mmol/L (136-145); UREA NITROGEN 35 mg/dL (7-18); eGFR NON AFRICAN AMERICAN 41 mL/min (90-120)
[2019-06-12 20:19] LABS: ALBUMIN 3.7 g/dL (3.4-5.0); ALKALINE PHOSPHATASE 67 U/L (30-120); ALT (SGPT) 24 U/L (10-68); AMYLASE - SERUM 87 U/L (25-115); BILIRUBIN - TOTAL 0.46 mg/dL (0.2-1.3); LIPASE 235 U/L (73-393); PROTEIN - SERUM 8.2 g/dL (6.4-8.2)
[2019-06-12 20:20] LABS: TROPONIN-I < 0.017 ng/mL (0.000-0.060)
[2019-06-12 21:07] VITALS: BP 142/54
--- NOTE | 2019-06-12 21:30 | NUR ---
PT TO CT AT THIS TIME.
[2019-06-12 21:49] LABS: BILIRUBIN NEGATIVE (NEGATIVE); GLUCOSE NEGATIVE (NEGATIVE); KETONE NEGATIVE (NEGATIVE); NITRITE NEGATIVE (NEGATIVE); SPECIFIC GRAVITY 1.015 (1.005-1.020); UROBILINOGEN NORMAL (NORMAL)
--- NOTE | 2019-06-12 22:00 | NUR ---
PT RESTING IN ROOM, DENIES NEEDS, CALL LIGHT WITHIN REACH, WILL CONTINUE TO MONITOR.
[2019-06-12 22:59] VITALS: BP 104/54
--- NOTE | 2019-06-12 23:30 | NUR ---
I have reviewed this patient and I concur with the Shift Assessment completed by the Licensed Practical Nurse today this shift.
[2019-06-13] VITALS (9 sets, daily range): BP systolic 115–138; BP diastolic 51–61; Ht 162.6 cm; Wt 45.4 kg
--- NOTE | 2019-06-13 | NUR ---
PT ARRIVED TO THE FLOOR. ALERT AND ORIENTED. NO SIGNS OF DISTRESS. BREATHING EVEN AND UNLABORED. IV SITE LT AC DRESSING CLEAN DRY AND INTACT. NO SIGNS OF INFECTION OR INFULTRATION. PT STATES NO PROBLEMS AT THIS TIME. ABD TENDER TO PALPATION. SKIN CLEAN DRY AND INTACT. LUNG SOUNDS CLEAR. FALL PRECAUTIONS IN PLACE. WILL CONTINUE PLAN OF CARE. CALL LIGHT IN REACH. BED LOWERED AND LOCKED. BED RAILS UPX2
[2019-06-13 04:27] LABS: BASOPHILS 0.2 % (0-2); EOSINOPHILS 1.1 % (0-7); HEMATOCRIT 31.8 % (36.0-48.0); IMMATURE GRANULOCYTES 0.2 % (0-5); MCH 29.1 pg (26.0-34.0); MCHC 30.5 g/dL (31.0-37.0); MCV 95.5 fL (80.0-100.0); MEAN PLATELET VOLUME 10.7 fL (7.4-10.4); MONOCYTES 6.2 % (2-11); NEUTROPHILS 76.3 % (40-80); PLATELET COUNT 274 10x3/uL (130-400); RBC 3.33 10x6/uL (4.00-5.40); RDW 13.8 % (11.5-14.5)
[2019-06-13 04:50] LABS: ALBUMIN 2.8 g/dL (3.4-5.0); ANION GAP 13.3 mmol/L (8-16); BILIRUBIN - TOTAL 0.37 mg/dL (0.2-1.3); CALCIUM 8.2 mg/dL (8.5-10.1); CARBON DIOXIDE 24.7 mmol/L (21.0-32.0); PROTEIN - SERUM 6.5 g/dL (6.4-8.2)
[2019-06-13 04:51] LABS: HEMOGLOBIN 9.7 g/dL (12-16); WBC 8.9 10x3/uL (4.8-10.8)
--- NOTE | 2019-06-13 08:22 | NUR ---
AWAKE AND ALERT. ORIENTED X3. NO C/O NAUSEA OR DIARRHEA THIS AM. DENIES ANY SINCE IN ER LAST PM. WILL MONITOR. LUNGS ARE CLEAR BILATERALLY, NO COUGH NOTED. SKIN IS INTACT WITHOUT REDNESS. IV TO LEFT FOREARM IS PATENT WITHOUT REDNESS AT INSERTION SITE. DENIES NEEDS.
--- NOTE | 2019-06-13 11:00 | NUR ---
OFF UNIT VIA BED FOR SURGERY.
--- NOTE | 2019-06-13 14:09 | NUR ---
RETURNED FROM SURGERY. ROUSES TO VERBAL STIMULATION. VSS. NO NEEDS NOTED.
--- NOTE | 2019-06-13 15:00 | NUR ---
RESTING QUIETLY WITH EYES CLOSED. VSS. DENIES NEEDS.
--- NOTE | 2019-06-13 18:48 | NUR ---
SITTING UP IN BED EATING CL SUPPER. VSS. DENIES NEEDS. NO CHANGES NOTED.
--- NOTE | 2019-06-14 02:44 | NUR ---
PT RESTING IN BED. EYES CLOSED. NO SIGNS OF DISTRESS. BREATHING EVEN AND UNLABORED. IV SITE LT AC DRESSING CLEAN DRY AND INTACT. NO SIGNS OF INFECTION OR INFULTRATION. LUNG SOUNDS CLEAR. SKIN CLEAN DRY AND INTACT. WILL CONTINUE PLAN OF CARE. CALL LIGHT IN REACH. BED LOWERED AND LOCKED. BED RAILS UPX2
--- NOTE | 2019-06-14 02:46 | NUR ---
I have reviewed this patient and I concur with the Shift Assessment completed by the Licensed Practical Nurse today this shift.
[2019-06-14 04:00] VITALS: BP 131/52
[2019-06-14 04:28] LABS: BASOPHILS 0.2 % (0-2); EOSINOPHILS 3.7 % (0-7); HEMATOCRIT 32.3 % (36.0-48.0); HEMOGLOBIN 9.6 g/dL (12-16); IMMATURE GRANULOCYTES 0.2 % (0-5); LYMPHOCYTES 13.3 % (15-50); MCH 29.2 pg (26.0-34.0); MCHC 29.7 g/dL (31.0-37.0); MEAN PLATELET VOLUME 10.5 fL (7.4-10.4); MONOCYTES 6.7 % (2-11); NEUTROPHILS 75.9 % (40-80); PLATELET COUNT 255 10x3/uL (130-400); RBC 3.29 10x6/uL (4.00-5.40); RDW 14.2 % (11.5-14.5); WBC 8.6 10x3/uL (4.8-10.8)
[2019-06-14 04:38] LABS: ALBUMIN 2.4 g/dL (3.4-5.0); ANION GAP 12.5 mmol/L (8-16); BILIRUBIN - TOTAL 0.5 mg/dL (0.2-1.3); CALCIUM 7.6 mg/dL (8.5-10.1); CARBON DIOXIDE 21.3 mmol/L (21.0-32.0); CREATININE - SERUM 0.8 mg/dL (0.6-1.3); POTASSIUM - SERUM 3.8 mmol/L (3.5-5.1); PROTEIN - SERUM 5.8 g/dL (6.4-8.2)
[2019-06-14 04:45] LABS: MCV 98.2 fL (80.0-100.0)
[2019-06-14 09:45] VITALS: BP 146/100
--- NOTE | 2019-06-14 10:49 | NUR ---
IV THERAPY INFILTRATED IN LEFT AC REMOVED WITH TIP INTACT. 20G PLACED IN LEFT HAND. 2 ATTEMPTS MADE. CL IN REACH. PATIENT SITTING UP IN THE CHAIR. WCTM
[2019-06-14 13:53] VITALS: BP 139/68
--- NOTE | 2019-06-14 14:30 | NUR ---
PATIENT ASSISTED BACK TO BED. BED POSSE ON. STARTED URINATING UPON STANDING. PROVIDED A DEPEND. CL IN REACH. BEDSIDE TABLE IN REACH. PHONE PLUGGED INTO MD PSYCHIATRY. CHRISTOS
[2019-06-14 18:10] VITALS: BP 135/63
--- NOTE | 2019-06-14 19:50 | NUR ---
AAOX4. LAP SITES X 3 AND MIDLINE INCISION. BOWEL SOUNDS HYPOACTIVE. TENDER TO PALPATION. HAS LEFT HAND IV THAT IS PATENT AND INFUSING NS. DENIES EFRA ALARM ON AT THIS TIME. CALL LIGHT CLOSE TO PATIENT. CPOC.
[2019-06-14 20:00] VITALS: BP 138/51
--- NOTE | 2019-06-14 20:45 | NUR ---
PATIENT REFUSES TO WEAR SCD'S. EDUCATED ON BENEFITS OF SCD'S. REFUSED WITH EDUCATION PROVIDED.
[2019-06-15] VITALS: BP 137/57
--- NOTE | 2019-06-15 00:31 | NUR ---
I have reviewed this patient and I concur with the Shift Assessment completed by the Licensed Practical Nurse today this shift.
[2019-06-15 04:00] VITALS: BP 121/65
[2019-06-15 06:02] LABS: BASOPHILS 0.1 % (0-2); EOSINOPHILS 5.1 % (0-7); HEMATOCRIT 28.4 % (36.0-48.0); HEMOGLOBIN 8.5 g/dL (12-16); IMMATURE GRANULOCYTES 0.1 % (0-5); LYMPHOCYTES 14.5 % (15-50); MCH 29.1 pg (26.0-34.0); MCHC 29.9 g/dL (31.0-37.0); MCV 97.3 fL (80.0-100.0); MEAN PLATELET VOLUME 10.7 fL (7.4-10.4); MONOCYTES 8.4 % (2-11); NEUTROPHILS 71.8 % (40-80); PLATELET COUNT 210 10x3/uL (130-400); RBC 2.92 10x6/uL (4.00-5.40); WBC 6.8 10x3/uL (4.8-10.8)
--- NOTE | 2019-06-15 08:00 | NUR ---
ASSESSMENT PER FLOW SHEET. PATIENT IS WITHOUT DISTRESS.CALL LIGHT IN REACH. FALL PREVENTION IN PLACE
[2019-06-15 08:02] VITALS: BP 116/51
--- NOTE | 2019-06-15 11:00 | NUR ---
ZOFRAN ORDERED FOR NAUSEA AFTER MORPHINE ORDERED.
[2019-06-15 13:22] VITALS: BP 152/68
--- NOTE | 2019-06-15 16:00 | NUR ---
MEDS ORDERED FOR NAUSEA. PATIENT HAD 200CC OF BROWNISH GREEN COLORED EMESIS.
[2019-06-15 18:13] VITALS: BP 173/76
[2019-06-15 20:00] VITALS: BP 166/75
--- NOTE | 2019-06-15 21:30 | NUR ---
PAGED FUNNEL COATER PHYSICIAN FOR DR. MENDIOLA. DR. GILBERT RETURNED PAGED. SPOKE WITH HIM ABOUT PATIENT'S PERSISTENT NAUSEA. REVIEWED ASSESSMENT FINDINGS AND I&O'S. RECEIVED ORDERS TO START PATIENT ON ZOFRAN DRIP AND HAVE A KUB PERFORMED THIS EVENING.
--- NOTE | 2019-06-15 22:00 | NUR ---
DEAN PEREZ INITIATED AND KUB PERFORMED BY RADIOLOGY. PENDING READING AT THIS TIME.
--- NOTE | 2019-06-15 23:28 | NUR ---
PATIENT COMPLAINS OF FOOT AND ABDOMINAL PAIN. REQUESTS PAIN PILL BUT DOES NOT WANT MORPHINE. PROVIDED AND PATIENT TOOK. MONITORING PATIENT.
[2019-06-16] VITALS: BP 163/72
--- NOTE | 2019-06-16 01:02 | NUR ---
ANSWERED PATIENT CALL LIGHT. PATIENT VOMITTED 300 CC OF COFFEE GRIND EMESIS THAT IS DARK BROWN IN COLOR. PAGED MACHINE OPERATOR PACKAGING
--- NOTE | 2019-06-16 01:10 | NUR ---
DR. GILBERT RETURNED PAGE. NOTIFIED DR OF COFFEE GROUND LIKE EMESIS. RECEIVED ORDER OF IV PROTONIX Q 12 AND STAT H&H. ALSO TO CALL TUMBLING INSTRUCTOR SURGEON AND REPORT CHANGES. PAGED DR. MERRITT. RECEIVED CALL BACK. RECEIVED ORDER TO PLACE NGT IF PATIENT VOMITS AGAIN. CPOC.
[2019-06-16 01:42] LABS: HEMATOCRIT 31.2 % (36.0-48.0); HEMOGLOBIN 9.8 g/dL (12-16)
[2019-06-16 04:00] VITALS: BP 148/68
--- NOTE | 2019-06-16 04:19 | NUR ---
PATIENT REPORTS FEELING MUCH BETTER AFTER PROTONIX ADMINISTRATION.
--- NOTE | 2019-06-16 04:26 | NUR ---
I have reviewed this patient and I concur with the Shift Assessment completed by the Licensed Practical Nurse today this shift.
--- NOTE | 2019-06-16 04:26 | NUR ---
I have reviewed this patient and I concur with the Shift Assessment completed by the Licensed Practical Nurse today this shift.
[2019-06-16 05:13] LABS: BASOPHILS 0.2 % (0-2); EOSINOPHILS 1.2 % (0-7); HEMATOCRIT 30.1 % (36.0-48.0); HEMOGLOBIN 9.4 g/dL (12-16); IMMATURE GRANULOCYTES 0.5 % (0-5); LYMPHOCYTES 10.2 % (15-50); MCH 29.6 pg (26.0-34.0); MCHC 31.2 g/dL (31.0-37.0); MEAN PLATELET VOLUME 10.9 fL (7.4-10.4); MONOCYTES 5.6 % (2-11); NEUTROPHILS 82.3 % (40-80); RBC 3.18 10x6/uL (4.00-5.40); RDW 13.3 % (11.5-14.5); WBC 8.3 10x3/uL (4.8-10.8)
[2019-06-16 05:15] LABS: MCV 94.7 fL (80.0-100.0); PLATELET COUNT 259 10x3/uL (130-400)
--- NOTE | 2019-06-16 06:09 | NUR ---
NO MORE EMESIS SINCE LAST DOCUMENTATION. PATIENT STATES NAUSEA HAS SUBSIDED GREATLY
[2019-06-16 09:50] VITALS: BP 158/67
[2019-06-16 13:40] VITALS: BP 122/50
--- NOTE | 2019-06-16 14:36 | MORECARE ---
CASE MANAGEMENT DISCHARGE SUMMARY PATIENT: CABRERA LOVELL UNIT: [id number] ADM DATE: 06/12/19 AGE: 84 : 37 SEX: F ROOM/BED: D.2226 AUTHOR: JAZ WALDROP PHYSICIAN: REFERRING PHYSICIAN: ELIZABETH MENDIOLA MD DATE OF SERVICE: 06/16/19 Discharge Plan Patient Name: CABRER[facility] LOVELL [facility] [facility] 1935 Planned Disposition: Home with Home Health Anticipated Discharge Date: Discharge Date: Expected LOS: Initial Reviewer: [email or web address] Initial Review Date: 06/13/2019 Generated: 06/16/19 3:35 pm DCPIA - Discharge Planning Initial Assessment Updated by [email or web address]: Sharyn Gray on 06/16/19 2:34 pm * Is the patient Alert and Oriented? Yes * How many steps to enter\exit or inside your home? * PCP GEO * Pharmacy [facility] * Preadmission Environment Home with Family * ADLs Independent * Equipment None * List name and contact numbers for known caregivers / representatives who currently or will assist patient after discharge: [facility] [phone] * Verbal permission to speak to the caregivers and representatives has been obtained from the patient. N/A * Community resources currently utilized None * Additional services required to return to the preadmission environment? Yes * Can the patient safely return to the preadmission environment? Yes * Has this patient been hospitalized within the prior 30 days at any hospital? No Patient Name: CABRERA LOVELL Page [phone] at 1436 All edits/amendments must be made on the electronic document DICTATION DATE: 06/16/19 1435 LUNG PULLER: LUCÍA 06/16/19 1435 RPT#: [id number] DC DATE: STATUS: ADM IN [facility] [address] [place] [address] END OF REPORT
--- NOTE | 2019-06-16 14:42 | MORECARE ---
CASE MANAGEMENT DISCHARGE SUMMARY PATIENT: CABRERA LOVELL UNIT: [id number] ADM DATE: 06/12/19 AGE: 84 : 37 SEX: F ROOM/BED: D.2226 AUTHOR: PALMA,DOC PHYSICIAN: REFERRING PHYSICIAN: ELIZABETH MENDIOLA MD DATE OF SERVICE: 06/16/19 Discharge Plan Patient Name: CABRERA LOVELL Facility: [facility]:[place] : 1935 Planned Disposition: Home with Home Health Anticipated Discharge Date: Discharge Date: Expected LOS: Initial Reviewer: [id number] Initial Review Date: 06/13/2019 Generated: 06/16/19 3:42 pm Comments DCP- Discharge Planning Updated by [email or web address]: Sharyn Gray on 06/16/19 1:[address] Patient Name: CABRERA LOVELL Admission Status: ER Accout number: [id number] Admission Date: 06-12-2019 : 1935 Admission Diagnosis:INTUSSUSCEPTION Attending: ELIZABETH MENDIOLA Current LOS: 4 Anticipated DC Date: Planned Disposition: Home with Home Health Primary Insurance: MEDICARE A & B Discharge Planning Comments: CM met with patient to assess discharge planning needs. Patient lives at home where she is independent with her care. A 91 yr old lady lives with her along with her adult special needs daughter that she is the primary medical care administrator for. She states at discharge her campaign associate will be her escort vehicle driver home. We discussed rehab vs home health. She thought she could benefit from HH. CONSTANCE signed for [facility]. I will send a referral to them. The patient does not have any DME and she feels safe going back to her home. CM will continue to follow and assist as needed. Lunchroom Operator: Sharyn Gray DCPIA - Discharge Planning Initial Assessment Updated by [email or web address]: Sharyn Gray on 06/16/19 2:34 pm * Is the patient Alert and Oriented? Yes * How many steps to enter\exit or inside your home? * PCP GEO * [facility] * Preadmission Environment Home with Family * ADLs Independent * Equipment None * List name and contact numbers for known caregivers / representatives who currently or will assist patient after discharge: [facility] [phone] * Verbal permission to speak to the caregivers and representatives has been obtained from the patient. N/A * Community resources currently utilized None * Additional services required to return to the preadmission environment? Yes * Can the patient safely return to the preadmission environment? Yes * Has this patient been hospitalized within the prior 30 days at any hospital? No External Providers External Provider: [facility] Next Contact Date: Service Request Date: Service Type: Resolution: Reviewer: Comments: Coverage Notice Reviewer: [email or web address] Mekhi Gray Notice Issued Date-Time: 06/16/2019 14:00 Notice Type: Patient Choice Letter Notice Delivered To: Patient Relationship to Patient: Injection Molding Supervisor Name: Delivery Method: HAND - Hand Delivered Beverly Days: Prior Verbal Notification: Recipient Understood Notice: Yes Recipient Signature: Yes Med Rec Note Co-signed by Attending: Coverage Notice Comment: constance with lindy Last DP export: 06/16/19 1:36 p Patient Name: CABRERA LOVELL Page [phone] at 1442 All edits/amendments must be made on the electronic document DICTATION DATE: 06/16/19 1442 POUCH MAKER: LUCÍA 06/16/19 1442 RPT#: [id number] DC DATE: STATUS: ADM IN [facility] [address] [place] [address] END OF REPORT
[2019-06-16 16:00] VITALS: BP 120/69
--- NOTE | 2019-06-16 19:20 | NUR ---
PATIENT ALERT AND ORIENTED TALKING ON CELL PHONE WHEN ENTERING THE ROOM. PATIENT STATES SHE FEELS MUCH BETTER THAN PRIOR BIODIESEL DIVISION MANAGER. STATES SHE HAS NO NAUSEA AT THIS TIME BUT INSISTS ON KEEPING ZOFRAN DRIP CONTIUING IN FEAR OF RETURNING NAUSEA. PATIENT ABDOMEN SLIGHTLY DISTENDED. LAP SITES X 3 TO THE ABDOMEN AND SMALL MIDLINE INCISION WITH DRESSING COVERING. PATIENT REFUSES SCD'S. PATIENT HAS RIGHT FOREARM IV THAT IS INFUSING ZOFRAN DRIP AND NS PER ORDERS. PATIENT WEARING 3L NC. LUNG SOUNDS DIMINISHED IN BILATERAL LOWER LOBES. DENIES PAIN AT THIS TIME. CALL LIGHT CLOSE. CPOC.
[2019-06-16 20:00] VITALS: BP 142/69
--- NOTE | 2019-06-16 21:00 | NUR ---
PATIENT HAD SMALL BOWEL MOVEMENT. PATIENT SPIRITS ARE GOOD AND HOPEFUL TO BE LEAVING SOON. PATIENT REFUSED DOSE OF MILK OF MAGNESIA AND STATES IT MADE HER VOMIT EARLIER. DENIES FURTHER NEEDS. RETURNED BACK TO BED SAFELY. CALL LIGHT CLOSE. CPOC.
[2019-06-17 00:33] VITALS: BP 129/57
--- NOTE | 2019-06-17 01:54 | NUR ---
RESTING WITH NO SIGNS OR SYMPTOMS OF DISTRESS AT THIS TIME. CALL LIGHT CLOSE TO PATIENT. EFRA ALARM ON. CPOC.
--- NOTE | 2019-06-17 03:59 | NUR ---
ASSISTED PATIENT TO BATHROOM. ANOTHER BOWEL MOVEMENT. MODERATE AMOUNT OF CRUMBLED TYPE STOOL.
[2019-06-17 04:30] VITALS: BP 131/60
[2019-06-17 07:53] VITALS: BP 153/72
--- NOTE | 2019-06-17 09:19 | NUR ---
SHE IS SLEEPING, AWAKEN TO MY VOICE. DENIES ANY NEEDS. LAP SITES TO HER ABDOMEN- CLEAN, DRY, INTACT.
--- NOTE | 2019-06-17 12:24 | NUR ---
ON 06/13/2019 DR. CAREY PERFORMED A LAP WITH LYSIS OF ADHESIONS. PT HAS MIDLINE INCISION AND 3 LAP SITES. .
[2019-06-17 12:35] VITALS: BP 171/84
--- NOTE | 2019-06-17 13:30 | NUR ---
Nutrition follow-up: Diet advanced to full liquids post-surgery for lysis of adhesions PO intake remains poor Labs reviewed Wt: 99# RDN will order Ensure with meals and fortified foods. RDN following.
[2019-06-17 17:13] VITALS: BP 172/76
[2019-06-17 20:05] VITALS: BP 154/71
--- NOTE | 2019-06-17 23:46 | NUR ---
REC'D. DURING WALKING ROUNDS CHGE OF SHIFT IN BED EYES CLOSED RESP. DEEP AND EVENWILL CONTINUE TO MONITOR FOR ANY CHGES IN CURRENT CONDITION AND FOLLOE CURRENT PLAN OF CARE.
[2019-06-18] VITALS: BP 146/65
[2019-06-18 04:00] VITALS: BP 142/68
[2019-06-18 08:48] VITALS: BP 163/73
--- NOTE | 2019-06-18 10:38 | NUR ---
SHE WALKED TO THE BATHROOM, WEAK STILL. SHE IS EATING SOME. DENIES ANY NEEDS AT THIS TIME. CALL LIGHT WITHIN REACH.
--- NOTE | 2019-06-18 10:39 | OP ---
PATIENT NAME: CABRERA LOVELL MEDICAL RECORD: [id number] :[birth year] LOCATION:D.[facility] [id number] ADMISSION DATE:06/12/19 SURGEON: KOBE CAREY MD DATE OF OPERATION: 06/13/2019 PREOPERATIVE DIAGNOSES: 1. Intussusception. 2. Rheumatoid arthritis, on chronic steroids. 3. Hypertension. 4. Hypothyroidism. POSTOPERATIVE DIAGNOSES: 1. Partial small-bowel obstruction secondary to adhesions. 2. Rheumatoid arthritis, on chronic steroids. 3. Hypertension. 4. Hypothyroidism. PROCEDURE: Diagnostic laparoscopy with laparoscopic lysis of adhesions. SURGEON: Kobe Carey MD REPORT OF PROCEDURE: The patient's abdomen was prepped and draped in sterile fashion. A Veress needle was inserted in the left upper quadrant and the abdomen was insufflated. A 5-mm Visiport trocar was inserted in the right lateral abdomen. I could see the Veress needle and there was no sign of any injury to bowel or surrounding structures. Another 5-mm trocar was placed in the right lateral subcostal region and one was placed in the right lower quadrant. The small bowel was adherent to the anterior abdominal wall and there are a lot of adhesions in the pelvis anteriorly. Using a delicate dissection, I was able to get the small bowel off of the abdominal wall. At this point, I had all of the bowel freed up, I then ran the small bowel from the ligament of Treitz towards the terminal ileum. There was some dilation of the small bowel, but no masses or lesions were seen. There did not appear to be a diverticulum. The mesentery appeared normal. Since the patient had some episodes of this recently and with the CT findings looking somewhat like intussusception, I wanted to be sure there were no masses that were missed. I then made a small incision in the midline just below the umbilicus and placed a small Juancarlos retractor. I eviscerated the small bowel was able to run this multiple times. I even shined a light through the posterior wall of the small bowel and inspected, and did not see any masses, lesions, ulcerations or diverticulum. I did not see any evidence of reason for an intussusception. At this point, I inspected the area where the lysis of adhesions had been performed and there did not appear to be any injury to the small bowel. I then placed all the small bowel back into the abdominal cavity and irrigated out the abdomen with normal saline. The midline fascia was closed with running 0 Vicryl. I then infused 20 mL of 0.25% Marcaine with epinephrine to the surrounding tissues and closed the skin incisions with subcutaneous 5-0 Monocryl. COMPLICATIONS: None. CONDITION: Stable. ANESTHESIA: General endotracheal and local. BLOOD LOSS: Minimal. OPERATIVE REPORT [id number] CABRERA LOVELL TRANSINT:[id number] Voice Confirmation ID: [id number] DOCUMENT ID: [id number] KOBE CAREY MD at 1039 CC: ELIZABETH MENDIOLA [id number] DICTATION DATE: 06/13/19 1303 SCHOOL AGE LEAD TEACHER: 06/13/19 1317 ADM IN [facility] [address] [place] [address]
[2019-06-18 12:59] VITALS: BP 133/61
[2019-06-18 16:38] VITALS: BP 150/68
[2019-06-18 20:00] VITALS: BP 158/68
[2019-06-19] VITALS: BP 167/61
[2019-06-19 04:00] VITALS: BP 155/77
--- NOTE | 2019-06-19 04:19 | NUR ---
I have reviewed this patient and I concur with the Shift Assessment completed by the Licensed Practical Nurse today this shift.
--- NOTE | 2019-06-19 08:00 | NUR ---
ASSESSMENT PER FLOW SHEET. PATIENT IS WITHOUT DISTRESS.MONITOR FOR NEEDS
[2019-06-19 08:54] VITALS: BP 138/62
[2019-06-19] MEDS ORDERED: HYDROCODON-ACE1 EA10 PO (12:48)
[2019-06-19 13:48] VITALS: BP 162/70
--- NOTE | 2019-06-19 15:03 | MORECARE ---
CASE MANAGEMENT DISCHARGE SUMMARY PATIENT: CABRERA LOVELL UNIT: [id number] ADM DATE: 06/12/19 AGE: 84 : 37 SEX: F ROOM/BED: D.2226 AUTHOR: PALMADOC PHYSICIAN: REFERRING PHYSICIAN: BENITO GUARDADO MD DATE OF SERVICE: 06/19/19 Discharge Plan Patient Name: CABRERA LOVELL Facility: [facility]:[place] : 1935 Planned Disposition: Home with Home Health Anticipated Discharge Date: Discharge Date: Expected LOS: Initial Reviewer: [email or web address] Initial Review Date: 06/13/2019 Generated: 06/19/19 4:02 pm Comments DCP- Discharge Planning Updated by [email or web address]: Sharyn Gray on 06/19/19 2:[address] PATIENT DISHCARGING HOME TODAY, IMM SERVED AND EXPLAINED. HER MANAGER BILLING WILL BE HER [facility] SHE WILL HAVE [facility] DCP- Discharge Planning Updated by [email or web address]: Sharyn Gray on 06/16/19 1:[address] Patient Name: CABRERA LOVELL Admission Status: ER Accout number: [id number] Admission Date: 06-12-2019 : 1935 Admission Diagnosis:INTUSSUSCEPTION Attending: ELIZABETH MENDIOLA Current LOS: 4 Anticipated DC Date: Planned Disposition: Home with Home Health Primary Insurance: MEDICARE A & B Discharge Planning Comments: CM met with patient to assess discharge planning needs. Patient lives at home where she is independent with her care. A 91 yr old lady lives with her along with her adult special needs daughter that she is the primary rn urgent care for. She states at discharge her outside sales consultant will be her escort car driver home. We discussed rehab vs home health. She thought she could benefit from HH. CONSTANCE signed for [facility]. I will send a referral to them. The patient does not have any DME and she feels safe going back to her home. CM will continue to follow and assist as needed. Machine Icer: Sharyn Gray DCPIA - Discharge Planning Initial Assessment Updated by [id number]: Sharyn Gray on 06/16/19 2:34 pm * Is the patient Alert and Oriented? Yes * How many steps to enter\exit or inside your home? * PCP GEO * Pharmacy [facility] * Preadmission Environment Home with Family * ADLs Independent * Equipment None * List name and contact numbers for known caregivers / representatives who currently or will assist patient after discharge: [facility] [phone] * Verbal permission to speak to the caregivers and representatives has been obtained from the patient. N/A * Community resources currently utilized None * Additional services required to return to the preadmission environment? Yes * Can the patient safely return to the preadmission environment? Yes * Has this patient been hospitalized within the prior 30 days at any hospital? No Coverage Notice Reviewer: [email or web address] Mekhi Gray Notice Issued Date-Time: 06/16/2019 14:00 Notice Type: Patient Choice Letter Notice Delivered To: Patient Relationship to Patient: Net Solutions Architect Name: Delivery Method: HAND - Hand Delivered Beverly Days: Prior Verbal Notification: Recipient Understood Notice: Yes Recipient Signature: Yes Med Rec Note Co-signed by Attending: Coverage Notice Comment: constance with ashleigh Reviewer: [email or web address] Mekhi Gray Notice Issued Date-Time: 06/19/2019 15:00 Notice Type: IM Discharge Notice Notice Delivered To: Patient Relationship to Patient: Net Solutions Architect Name: Delivery Method: - Beverly Days: Prior Verbal Notification: Recipient Understood Notice: Recipient Signature: Med Rec Note Co-signed by Attending: Coverage Notice Comment: Last DP export: 06/16/19 1:42 p Patient Name: CABRERA LOVELL Page [phone] at 1503 All edits/amendments must be made on the electronic document DICTATION DATE: 06/19/19 1502 SWIMMING PROFESSOR: LUCÍA 06/19/19 1502 RPT#: [id number] DC DATE: STATUS: ADM IN [facility] [address] [place] [address] END OF REPORT
--- NOTE | 2019-06-19 18:22 | NUR ---
IV DCD WITH CATH TIP INTACT. DISCHARGE INSTRUCTIONS,STATES UNDERSTANDING. WAITING ON RIDE HOME.
--- NOTE | 2019-06-19 18:33 | NUR ---
LEFT UNIT VIA WHEELCHAIR FOR TRANSPORT HOME
--- NOTE | 2019-06-20 14:47 | MORECARE ---
CASE MANAGEMENT DISCHARGE SUMMARY PATIENT: CABRERA LOVELL UNIT: [id number] ADM DATE: 06/12/19 AGE: 84 : 39 SEX: F ROOM/BED: D.2226 AUTHOR: PALMA,DOC PHYSICIAN: REFERRING PHYSICIAN: BENITO GUARDADO MD DATE OF SERVICE: 06/20/19 Discharge Plan Patient Name: CABRERA LOVELL Facility: [facility]:[place] : 1935 Planned Disposition: Home with Home Health Anticipated Discharge Date: Discharge Date: 06/19/2019 Expected LOS: Initial Reviewer: [email or web address] Initial Review Date: 06/13/2019 Generated: 06/20/19 3:46 pm Comments DCP- Discharge Planning Updated by [email or web address]: Sharyn Gray on 06/19/19 2:[address] PATIENT DISHCARGING HOME TODAY, IMM SERVED AND EXPLAINED. HER HEAD MEN'S TENNIS COACH WILL BE HER SUPERVISOR KENNEL HOME SHE WILL HAVE [facility] DCP- Discharge Planning Updated by [email or web address]: Sharyn Gray on 06/16/19 1:[address] Patient Name: CABRERA LOVELL Admission Status: ER Accout number: [id number] Admission Date: 06-12-2019 : 1935 Admission Diagnosis:INTUSSUSCEPTION Attending: ELIZABETH MENDIOLA Current LOS: 4 Anticipated DC Date: Planned Disposition: Home with Home Health Primary Insurance: MEDICARE A & B Discharge Planning Comments: CM met with patient to assess discharge planning needs. Patient lives at home where she is independent with her care. 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 She states at discharge her contracting officer will be her mail truck driver home. We discussed rehab vs home health. She thought she could benefit from HH. CONSTANCE signed for [facility]. I will send a referral to them. The patient does not have any DME and she feels safe going back to her home. CM will continue to follow and assist as needed. Ditch Cleaner: Sharyn Gray DCPIA - Discharge Planning Initial Assessment Updated by [email or web address]: Sharyn Gray on 06/16/19 2:34 pm * Is the patient Alert and Oriented? Yes * How many steps to enter\exit or inside your home? * PCP [facility] * [facility]acy [facility] * Preadmission Environment Home with Family * ADLs Independent * Equipment None * List name and contact numbers for known caregivers / representatives who currently or will assist patient after discharge: ENMA [phone] * Verbal permission to speak to the caregivers and representatives has been obtained from the patient. N/A * Community resources currently utilized None * Additional services required to return to the preadmission environment? Yes * Can the patient safely return to the preadmission environment? Yes * Has this patient been hospitalized within the prior 30 days at any hospital? No External Providers External Provider: [facility] Next Contact Date: Service Request Date: Service Type: Resolution: Reviewer: Comments: Coverage Notice Reviewer: [id number] Mekhi Gray Notice Issued Date-Time: 06/16/2019 14:00 Notice Type: Patient Choice Letter Notice Delivered To: Patient Relationship to Patient: Parking Analyst Name: Delivery Method: HAND - Hand Delivered Beverly Days: Prior Verbal Notification: Recipient Understood Notice: Yes Recipient Signature: Yes Med Rec Note Co-signed by Attending: Coverage Notice Comment: constance with ashleigh Reviewer: [email or web address] Mekhi Gray Notice Issued Date-Time: 06/19/2019 15:00 Notice Type: IM Discharge Notice Notice Delivered To: Patient Relationship to Patient: Parking Analyst Name: Delivery Method: HAND - Hand Delivered Beverly Days: Prior Verbal Notification: Recipient Understood Notice: Yes Recipient Signature: Yes Med Rec Note Co-signed by Attending: Coverage Notice Comment: Last DP export: 06/19/19 2:03 p Patient Name: CABRERA LOVELL Page [phone] at 1447 All edits/amendments must be made on the electronic document DICTATION DATE: 06/20/19 1446 PICKLE WATER PUMP OPERATOR: LUCÍA 06/20/19 1446 RPT#: [id number] DC DATE:06/19/19 STATUS: DIS IN [facility] [address] [place] [address] END OF REPORT
--- NOTE | 2019-06-21 08:23 | MORECARE ---
CASE MANAGEMENT DISCHARGE SUMMARY PATIENT: CABRERA LOVELL UNIT: [id number] ADM DATE: 06/12/19 AGE: 84 : 37 SEX: F ROOM/BED: D.2226 AUTHOR: PALMA,DOC PHYSICIAN: REFERRING PHYSICIAN: BENITO GUARDADO MD DATE OF SERVICE: 06/21/19 Discharge Plan Patient Name: CABRERA LOVELL Facility: [facility]:[place] : 1935 Planned Disposition: Home with Home Health Anticipated Discharge Date: Discharge Date: 06/19/2019 Expected LOS: 0 Initial Reviewer: [email or web address] Initial Review Date: 06/13/2019 Generated: 06/21/19 9:23 am Comments DCP- Discharge Planning Updated by [email or web address]: Sharyn Gray on 06/19/19 2:[address] PATIENT DISHCARGING HOME TODAY, IMM SERVED AND EXPLAINED. HER SHED BOSS WILL BE HER HOG HANDLER HOME SHE WILL HAVE [facility] DCP- Discharge Planning Updated by [email or web address]: Sharyn Gray on 06/16/19 1:[address] Patient Name: CABRERA LOVELL Admission Status: ER Accout number: [id number] Admission Date: 06-12-2019 : 1935 Admission Diagnosis:INTUSSUSCEPTION Attending: ELIZABETH MENDIOLA Current LOS: 4 Anticipated DC Date: Planned Disposition: Home with Home Health Primary Insurance: MEDICARE A & B Discharge Planning Comments: CM met with patient to assess discharge planning needs. Patient lives at home where she is independent with her care. 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 She states at discharge her sandfill operator will be her wood pile driver operator home. We discussed rehab vs home health. She thought she could benefit from HH. CONSTANCE signed for [facility]. I will send a referral to them. The patient does not have any DME and she feels safe going back to her home. CM will continue to follow and assist as needed. Paving Contractor: Sharyn Gray DCPIA - Discharge Planning Initial Assessment Updated by [email or web address]: Sharyn Gray on 06/16/19 2:34 pm * Is the patient Alert and Oriented? Yes * How many steps to enter\exit or inside your home? * PCP [facility] * [facility] * Preadmission Environment Home with Family * ADLs Independent * Equipment None * List name and contact numbers for known caregivers / representatives who currently or will assist patient after discharge: ENMA [phone] * Verbal permission to speak to the caregivers and representatives has been obtained from the patient. N/A * Community resources currently utilized None * Additional services required to return to the preadmission environment? Yes * Can the patient safely return to the preadmission environment? Yes * Has this patient been hospitalized within the prior 30 days at any hospital? No Coverage Notice Reviewer: [email or web address] Mekhi Gray Notice Issued Date-Time: 06/16/2019 14:00 Notice Type: Patient Choice Letter Notice Delivered To: Patient Relationship to Patient: Varnish Remover Name: Delivery Method: HAND - Hand Delivered Beverly Days: Prior Verbal Notification: Recipient Understood Notice: Yes Recipient Signature: Yes Med Rec Note Co-signed by Attending: Coverage Notice Comment: constance with ashleigh Reviewer: [id number] Gray Notice Issued Date-Time: 06/19/2019 15:00 Notice Type: IM Discharge Notice Notice Delivered To: Patient Relationship to Patient: Varnish Remover Name: Delivery Method: HAND - Hand Delivered Beverly Days: Prior Verbal Notification: Recipient Understood Notice: Yes Recipient Signature: Yes Med Rec Note Co-signed by Attending: Coverage Notice Comment: Last DP export: 06/20/19 1:47 p Patient Name: CABRERA LOVELL Page [phone] at 0823 All edits/amendments must be made on the electronic document DICTATION DATE: 06/21/19822 PARACHUTE MENDER: LUCÍA 06/21/19822 RPT#: [id number] DC DATE:06/19/19 STATUS: DIS IN [facility] [address] [place] [address] END OF REPORT
== END 2019-06-19 18:33 | disposition home health service (06) | DRG 335 ==
LOC: D.ER 19:16 → D.MS 22:36
PROVIDERS: Family Medicine; Surgery; ADMIT Family Medicine; ATTEND Family Medicine
PROC: 0DN84ZZ Release Small Intestine, Percutaneous Endoscopic Approach (ICD-10-PCS; principal; 2019-06-13 10:30)
DX: K56.51 Intestinal adhesions [bands], with partial obstruction (principal); E43 Unspecified severe protein-calorie malnutrition; Z68.1 Body mass index [BMI] 19.9 or less, adult; M06.9 Rheumatoid arthritis, unspecified; I10 Essential (primary) hypertension; E03.9 Hypothyroidism, unspecified; K56.1 Intussusception